=== PATIENT | male | born 1955 | race Two or more races ===

== ENCOUNTER 2020-04-08 13:55 | Emergency (ER) | payer OTHER ==
[2020-04-08] MEDS ORDERED: FENTANYL CITRATE INJ/PF 100 MCG/2 ML AMPUL IV ONE (14:56)
--- NOTE | 2020-04-08 14:57 | ER Document Report ---
ED Medical Screen (RME) - General Chief Complaint: Shoulder Pain Stated Complaint: SHOULDER PAIN Time Seen by Provider: 04/08/20 14:30 Notes: Patient slipped and fell injuring the right shoulder. Patient tried to brace his fall. Patient denies any other injuries. I have greeted and performed a rapid initial assessment of this patient. A comprehensive ED assessment and evaluation of the patient, analysis of test results and completion of the medical decision making process will be conducted by additional ED providers. - Related Data Allergies/Adverse Reactions: No Known Allergies Allergy (Unverified 04/08/20 14:43) Home Medications: Metformin Physical Exam - Vital signs Vitals: Temp Pulse Resp BP Pulse Ox 98.3 F 63 22 H 160/99 H 93 04/08/20 14:00 04/08/20 14:00 04/08/20 14:00 04/08/20 14:00 04/08/20 14:00 - General General appearance: Alert In distress: Moderate Notes: Palpable deformity noted to right shoulder, 2+ radial pulse Course - Vital Signs Vital signs: Temp Pulse Resp BP Pulse Ox 98.3 F 63 22 H 160/99 H 93 04/08/20 14:39 04/08/20 14:00 04/08/20 14:00 04/08/20 14:00 04/08/20 14:00
--- NOTE | 2020-04-08 15:10 | RADIOLOGY REPORT (SQ) ---
EXAM DESCRIPTION: SHOULDER RIGHT 2 OR MORE VIEWS IMAGES COMPLETED DATE/TIME: 04/08/2020 2:54 pm REASON FOR STUDY: fall, r shoulder inj COMPARISON: None. NUMBER OF VIEWS: Three views. TECHNIQUE: Internal rotation, external rotation, and Y view images acquired of the right shoulder. LIMITATIONS: None. FINDINGS: MINERALIZATION: Normal. BONES: Anterior inferior dislocation of the humeral head with respect to the glenoid. There is no di scernible fracture. The AC joint is in anatomic alignment. The enthesophytes along the undersurface of the acromion and the sclerosis of the greater tubercle of the humerus are suggestive of underlyin g rotator cuff tendinopathy. JOINTS: As above. VISUALIZED LUNGS AND RIBS: No pneumothorax or rib fracture. SOFT TISSUES: No radiopaque foreign body. OTHER: No other finding. IMPRESSION: Anterior inferior dislocation of the right glenohumeral joint. TECHNICAL DOCUMENTATION: JOB ID: [id number] 2010 [employer]- All Rights Reserved Reading location - IP/workstation name: [email or web address]
[2020-04-08] MEDS ORDERED: PROPOFOL INJ 200 MG/20 ML VIAL IV ONE (15:31)
--- NOTE | 2020-04-08 16:06 | ER Document Report ---
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 No wrist hand pain. Mild tingling in the deltoid which is now resolved. He has no history of surgeries or anesthesia and his last eaten at 9 AM. - Related Data Allergies/Adverse Reactions: No Known Allergies Allergy (Verified 04/08/20 16:57) Home Medications: Metformin Past Medical History - General Information source: Patient - Social History Smoking Status: Never Smoker Family History: None Patient has homicidal ideation: No Review of Systems - Review of Systems Notes: REVIEW OF SYSTEMS GEN: Denies fever, chills, weight loss ENT: Denies sore throat, nasal discharge, ear pain EYES: Denies blurry vision, eye pain, discharge CV: Denies chest pain, palpitations, edema RESP: Denies cough, shortness of breath, wheezing GI: Denies abdominal pain, nausea, vomiting, diarrhea MSK: Shoulder pain SKIN: Denies rash, skin lesions LYMPH: Denies swollen glands/lymph nodes NEURO: Denies headache, focal weakness or numbness, dizziness PSYCH: Denies depression, suicidal or homicidal ideation PHYSICAL EXAMINATION General: No acute distress, well-nourished Head: Atraumatic, normocephalic ENT: Mouth normal, oropharynx moist, no exudates or tonsillar enlargement Eyes: Conjunctiva normal, pupils equal, lids normal Neck: No JVD, supple, no guarding CVS: Normal rate, regular rhythm, no murmurs Resp: No resp distress, equal and normal breath sounds bilaterally GI: Nondistended, soft, no tenderness to palpation, no rebound or guarding Ext: Right shoulder deformity with sulcus sign and decreased range of motion soft, elbow forearm wrist normal with good pulses at the wrist Back: No CVA or midline TTP Skin: No rash, warm Lymphatic: No lymphadeopathy noted Neuro: Awake, alert. Face symmetric. GCS 15. Sensation throughout the right upper extremity Physical Exam - Vital signs Vitals: Temp Pulse Resp BP Pulse Ox 98.3 F 63 22 H 160/99 H 93 04/08/20 14:00 04/08/20 14:00 04/08/20 14:00 04/08/20 14:00 04/08/20 14:00 Course - Re-evaluation Re-evalutation: 04/08/20 16:08 Dominant right shoulder dislocation transient neuro symptoms but neurovascular intact at this time Confirmed by x-ray In [place] discussed with patient regarding sedation. Will sedate reduced sling 04/08/20 18:01 Reduced successfully. Given sling, prescription sent for follow-up with orthopedics Post procedure exam is normal I have discussed with the patient there likely diagnosis, aftercare plan, follow-up plans and my usual and customary return precautions. They verbalized understanding of this. - Vital Signs Vital signs: Temp Pulse Resp BP Pulse Ox 98.3 F 72 18 161/89 H 99 04/08/20 14:39 04/08/20 16:39 04/08/20 16:39 04/08/20 16:39 04/08/20 16:39 - Diagnostic Test Radiology reviewed: Image reviewed, Reports reviewed Procedures - Conscious Sedation Conscious sedation Consent obtained: Yes Indication: Duction of shoulder dislocation Prior complications: Other - None Normal healthy pt.: P1. - ASA Classification Airway Evaluation: Normal anatomy, Obese Mallampati Classification: Class 2 Used during procedure: Suction available, IV access obtained, Pulse ox on pt., potline monitor on pt. Medications administered: Diprivan - Milligrams total Reversal agents: None I personally performed/intraservice time: Sedation, Procedure Complications: No - Joint Reduction/Fracture Care Right Upper Shoulder Consent obtained: Yes Conscious sedation: Yes Pre-procedure NV exam: Yes - Normal Fracture: Closed Manipulation comment: Traction countertraction 1 attempt Post-procedure NV exam: Yes - Normal Post-reduction x-ray: Joint reduced Reduction attempts: 1 Complications: No Notes: 04/08/20 18:03 Reduction without fracture confirmed on x-ray Discharge - Discharge Clinical Impression: Closed anterior dislocation of right shoulder Qualifiers: Encounter type: initial encounter Qualified Code(s): S43.014A - Anterior dislocation of right humerus, initial encounter Condition: Good Disposition: HOME, SELF-CARE Instructions: Pain Medication Injection ([facility]), Post Sedation Instructions ([facility]), Shoulder Dislocation ([facility]), Sling as Treatment ([facility]) Prescriptions: Oxycodone HCl/Acetaminophen [Percocet 5-325 mg Tablet] 1 - 2 tab PO Q4H PRN #15 tablet PRN Reason: Referrals: DELMAR SHULTZ JR, DO [ACTIVE PROVISIONAL STAFF] - Follow up in 1 week
--- NOTE | 2020-04-08 17:08 | RADIOLOGY REPORT (SQ) ---
EXAM DESCRIPTION: SHOULDER RIGHT 1 VIEW IMAGES COMPLETED DATE/TIME: 04/08/2020 4:54 pm REASON FOR STUDY: post-red- WILL CALL U WHEN READY! COMPARISON: None. NUMBER OF VIEWS: One view. TECHNIQUE: Internal rotation image acquired of the right shoulder. LIMITATIONS: None. FINDINGS: MINERALIZATION: Normal. BONES: Successful reduction of an anterior inferior dislocation of the femoroacetabular joint. JOINTS: As above. VISUALIZED LUNGS AND RIBS: No pneumothorax or rib fracture. SOFT TISSUES: No radiopaque foreign body. OTHER: No other finding. IMPRESSION: Successful reduction of an anterior inferior dislocation of the femoroacetabular joint. TECHNICAL DOCUMENTATION: JOB ID: [id number] 2010 [employer]- All Rights Reserved Reading location - IP/workstation name: [email or web address]
[2020-04-08 19:04] VITALS: BP 154/116
== END 2020-04-08 19:04 | disposition home or self-care (01) ==
LOC: ER 13:55
DX: S43.014A Anterior dislocation of right humerus, initial encounter (principal); M25.511 Pain in right shoulder; W01.10XA Fall on same level from slipping, tripping and stumbling with subsequent striking against unspecified object, initial encounter; Z79.84 Long term (current) use of oral hypoglycemic drugs
CPT/HCPCS: 99283; 99152; 96374; 73020; 73030; 23650; J3010; J2704